=== PATIENT | male | born 1990 | race African-American/Black ===

== ENCOUNTER 2016-10-25 03:19 | Emergency (ER) | payer SELFPAY ==
[~2016-10-25] VITALS: Ht 177.8 cm; Wt 81.6 kg
[2016-10-25 03:25] VITALS: BP 130/84
[2016-10-25 03:27] VITALS: BP 130/84
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
== END 2016-10-25 03:27 ==
LOC: EDBD 03:19 → EMR 03:25
DX: S09.8XXA Other specified injuries of head, initial encounter (principal); S50.312A Abrasion of left elbow, initial encounter; S50.311A Abrasion of right elbow, initial encounter; Y04.2XXA Assault by strike against or bumped into by another person, initial encounter; Y92.89 Other specified places as the place of occurrence of the external cause; F10.129 Alcohol abuse with intoxication, unspecified
CPT/HCPCS: 99283